=== PATIENT | female | born 1980 | race Caucasian/White ===

== ENCOUNTER 2019-03-24 07:09 | Inpatient (IN) | payer OTHER ==
[2019-03-21 13:15] VITALS: BMI 24.5
[2019-03-24] MEDS ORDERED: MIDAZOLAM HCL 2 MG/2 ML SINGLE DOSE VIAL ONE ×3 (07:51→08:53)
[2019-03-24] MEDS ORDERED: DEXAMETHASONE SOD PHOSPHATE 4 MG/1 ML VIAL ONE ×4 (07:53→08:53)
[2019-03-24] MEDS ORDERED: ROPIVACAINE HCL 0.5% 30ML VIAL ONE (07:53)
--- NOTE | 2019-03-24 08:07 | HP ---
History & Physical Update - History History: No Change - Physical Physical: No Change - Assessment Assessment: No Change - Plan Plan: No Change (Initial H&P is located in pateint's paper chart. It is complete /accurate/UTD. No new medications or complaints. Here today for elective abdominal myomectomy.)
[2019-03-24] MEDS ORDERED: ceFAZolin SODIUM 1 GM VIAL ONE ×2 (08:10→08:11)
[2019-03-24] MEDS ORDERED: PHENAZOPYRIDINE HCL 100 MG TABLET (FP) PO ONE (08:10)
[2019-03-24] MEDS ORDERED: PROPOFOL 20 ML ONE ×3 (08:11→08:53)
[2019-03-24] MEDS ORDERED: SODIUM CHLORIDE 0.9% P/F 10 ML VIAL IJ ONE ×2 (08:11→08:41)
[2019-03-24] MEDS ORDERED: fentaNYL CITRATE 250 MCG/5 ML VIAL ONE (08:11)
[2019-03-24] MEDS ORDERED: EPHEDRINE SULFATE/0.9% NACL/PF 50 MG/10 ML SYRINGE NR ONE (08:15)
[2019-03-24] MEDS ORDERED: ROCURONIUM BROMIDE 50 MG/5 ML SYRINGE ONE ×2 (08:17→08:53)
[2019-03-24] MEDS ORDERED: ONDANSETRON 4 MG/2 ML VIAL IVPUSH PRN ×2 (08:25→11:36)
[2019-03-24] MEDS ORDERED: oxyCODONE HCL 5 MG TABLET PO PRN ×3 (08:25→11:36)
[2019-03-24] MEDS ORDERED: SCOPOLAMINE HYDROBROMIDE 1 PATCH PATCH.TD72 ONE (09:07)
[2019-03-24] MEDS ORDERED: ceFAZolin 2 GRAM PREMIX BAG IVPB ONE (09:28)
[2019-03-24] MEDS ORDERED: ACETAMINOPHEN INJECTION 100 ML IVPB ONE (09:50)
[2019-03-24] MEDS ORDERED: KETOROLAC TROMETHAMINE 30 MG/1 ML VIAL ONE (11:11)
--- NOTE | 2019-03-24 11:35 | OP ---
Operative Note - Note: Operative Date: 03/24/19 Pre-Operative Diagnosis: Multiple uterine fibroids Operation: open abdominal myomectomy x2 Post-Operative Diagnosis: Same as Pre-op Surgeon: Rudy Kuhn Senior Medical Transcriptionist: Clemente Oliva Anesthesiologist/WATER SOFTENER SERVICER AND INSTALLER: Kaela Bingham Anesthesia: General Specimens Removed: fibroids x 2 Estimated Blood Loss (mls): 50 Drains, Volume Out (mls): 400 (broderick/orange from pyridium) Fluid Volume Replaced (mls): 1,500 Operative Report Dictated: Yes
[2019-03-24] MEDS ORDERED: BISACODYL 5 MG TABLET.DR (FP) PO PRN (11:36)
[2019-03-24] MEDS ORDERED: IBUPROFEN 800 MG/8 ML IJ IVPB PRN (11:36)
[2019-03-24] MEDS ORDERED: DOCUSATE SODIUM 100 MG CAPSULE (FP) PO PRN (11:36)
--- NOTE | 2019-03-24 11:36 | SURG ---
Surgery Medical Staff Physician Note Medical Staff Physician: Clemente Oliva PA-C Date of Service: 03/24/19 Diagnosis: Leiomyoma I was present for the entirety of the operative procedure. For further detail, please refer to operative report. Visit type - Case Type Case Type: Scheduled - New patient This patient is new to me today: Yes Date on this admission: 03/24/19
--- NOTE | 2019-03-24 13:21 | OP ---
DATE OF OPERATION: 03/24/2019 PROCEDURE: Abdominal myomectomy. HISTORY: Patient is 38-year-old para 1 complaining of excessive menorrhagia and vaginal bleeding, history of pelvic pain. On the exam, uterus about 14 weeks. Irregular cervix with multiple fibroids. Sonogram confirmed multiple fibroids about 7 cm each. Discussed with the patient options for management. Patient opted for surgical management. Procedure explained. Risks and benefits explained. Risks of possible bleeding, infection, perforation, injury of pelvic and abdominal organs including, but not limited to, the ureter, bowel, bladder explained to the patient. Patient opted for surgical management. Also risk of recurrence of fibroid. Risk of unable to conceive in the future explained to the patient. Patient understood the risks. Patient understood also that in the following conceived patient needs section as the mode of delivery. SURGEON: Rudy Kuhn MD HEALTH POLICY MANAGER: JOAN Lange ESTIMATED BLOOD LOSS: 50 mL. INTRAVENOUS FLUID GIVEN: Lactated Ringer's 1800 mL. URINE OUTPUT: 250 mL clear. COMPLICATIONS: None. ANESTHESIA: General anesthesia with abdominal TAP. Patient received 2 g of Ancef preoperatively. PREOPERATIVE DIAGNOSIS: Pelvic pain, menorrhagia, and fibroids. POSTOPERATIVE DIAGNOSIS AND FINDINGS: Multiple fibroids about 7-8 cm each dissected. Sent for pathological evaluation. The ovary and the tubes bilateral grossly look normal. Uterus size about 16-17 weeks' size prior to removal of the fibroids. DESCRIPTION OF PROCEDURE: Patient was taken to operating room under general anesthesia. After receiving 2 g of Ancef preoperatively with TAP anesthesia, was prepped, draped in dorsal position. Skin Pfannenstiel incision was done by scalpel, carried to underlying layer of fascia. Patient following that with scalpel to underlying layer of fascia, the fascia was incised in the midline, extended bilaterally using Wood scissors. The muscle and the peritoneum were entered bluntly. Evaluation of the pelvic organ showed multiple fibroids about 7-8 cm each, 1 anteriorly lateral to the right side, 1 anteriorly lateral to the left side about 7-8 cm each. Attention was given to the anterior fibroid on the right side. Was incised the serosa on top of the fibroid. Fibroid was dissected and sent for pathological evaluation using a Bovie and Wood scissors. Following that, the bed of the fibroid after removed was closed and approximated with interrupted 0 Vicryl in multiple layers. The serosa was closed using a baseball suture style using 0 Vicryl. Following that, attention was given to anterior lateral to left side fibroid was identified. The serosa was incised, and the fibroid was remove using a Bovie and Wood scissors and sent for pathological examination. The bed of the fibroid after removed was closed using 0 Vicryl in multiple layers, and the serosa was closed using baseball-style suture using 0 Vicryl. Good hemostasis was obtained. We used Interceed and Surgicel to cover the area where the incision was performed and the myomectomy was performed preventing adhesions in the future. Irrigation and suction was performed. Shows good hemostasis. The fascia was closed in continuous, locked fashion using 0 Vicryl, subcutaneous was closed using 3-0 Vicryl interrupted, and subcuticular was closed using 3-0 Vicryl. We used Dermabond to close the skin incision. Good hemostasis was obtained. Patient transferred to recovery room in stable condition. RUDY KUHN MD [id number]
[2019-03-24] MEDS: LACTATED RINGERS SOLUTION 1,000 ML IV SCH (17:12)
--- NOTE | 2019-03-24 19:16 | PN ---
Progress Note (short form) - Note Progress Note: S/P Abdominal Myomectomy a febrile , no vaginal bleeding , ambulate incision intact , no discharge , no bleeding . abdomin sofr ,non tende, no distension , will cont. ambulate . Po pain management prn . advance diet .
[2019-03-24 19:49] LABS: HEMATOCRIT 34.8 % (32.4-45.2); HEMOGLOBIN 11.4 GM/dL (10.7-15.3); MCH 28.4 pg (25.7-33.7); MCHC 32.7 g/dl (32.0-36.0); PLATELET COUNT 183 K/MM3 (134-434); RDW 15.5 % (11.6-15.6); WHITE BLOOD COUNT 10.3 K/mm3 (4.0-10.0)
[2019-03-24 20:15] LABS: BLOOD UREA NITROGEN 9.1 mg/dL (7-18); CALCIUM 8.1 mg/dL (8.5-10.1); CREATININE 0.7 mg/dL (0.55-1.3); POTASSIUM 4.1 mmol/L (3.5-5.1)
[2019-03-25] MEDS: oxyCODONE HCL 5 MG TABLET PO PRN ×2 (06:23→15:47)
[2019-03-25] MEDS: LACTATED RINGERS SOLUTION 1,000 ML IV SCH ×2 (06:23→15:10)
--- NOTE | 2019-03-25 08:17 | PN ---
Progress Note (short form) - Note Progress Note: Surgery POD #1 abdominal myomectomy patient seen and examined at bedside with complaints of gas. She has been OOB and is tolerating her clear diet. Her pain is controlled and she denies any CP, SOB, N/V, fever or chills. Vital Signs Temp 98.6 F 03/25/19 06:25 Pulse 64 03/25/19 06:25 Resp 20 03/25/19 06:25 BP 115/69 03/25/19 06:25 Pulse Ox 98 03/24/19 21:00 Intake & Output 03/24/19 03/24/19 03/25/19 11:59 23:59 11:59 Intake Total 2000 1100 1100 Output Total 150 2900 400 Balance 1850 -1800 700 Intake: IV 2000 1100 600 Lactated Ringers Solution 300 600 1,000 ml @ 75 mls/hr IV ASDIR KEERTHI Rx#:[id number] Oral 500 Output: Urine 100 2900 400 Broderick 400 Void 1100 400 Estimated Blood Loss 50 Other: Voiding Method Toilet Bowel Movement No No CBC, BMP 03/25/19 07:50 PE: A&Ox3, NAD Unlabored resp on RA ABD: soft, ND with mild ttp throughout lower quadrants. dressing c/d/i with surrounding tissue intact and no evidence of tracking erythema or edema. No vaginal bleeding. B/L LE compartments soft, supple and non-tender with +2 Dp pulses Problem List - Problems (1) Status post myomectomy Assessment/Plan: POD #1 doing well. -Advance diet -D/c broderick- TOV -OOB as tolerated -Simenthicone for gas -plan for possible d/c later today pending. Code(s): Z98.890 - OTHER SPECIFIED POSTPROCEDURAL STATES
[2019-03-25 08:27] LABS: HEMATOCRIT 32.4 % (32.4-45.2); HEMOGLOBIN 10.8 GM/dL (10.7-15.3); MCH 28.7 pg (25.7-33.7); MCHC 33.2 g/dl (32.0-36.0); MEAN CELL VOLUME 86.3 fl (80-96); MEAN PLT VOLUME 9.6 fl (7.5-11.1); PLATELET COUNT 184 K/MM3 (134-434); RBC 3.76 M/mm3 (3.60-5.2); RDW 15.4 % (11.6-15.6); WHITE BLOOD COUNT 10.9 K/mm3 (4.0-10.0)
[2019-03-25 08:55] LABS: BLOOD UREA NITROGEN 6.3 mg/dL (7-18); CREATININE 0.7 mg/dL (0.55-1.3); POTASSIUM 3.7 mmol/L (3.5-5.1)
[2019-03-25] MEDS: ACETAMINOPHEN 325 MG TABLET (FP) PO PRN (10:51)
[2019-03-25] MEDS: ASCORBIC ACID 500 MG TABLET (FP) PO SCH (10:51)
[2019-03-25] MEDS: ENOXAPARIN NA (PORCINE) 40 MG/0.4 ML DISP.SYRIN SQ SCH (10:52)
[2019-03-25] MEDS: MULTIVITAMINS (DAILY MVI) TABLET (FP) PO SCH (10:52)
[2019-03-25] MEDS: CHOLECALCIFEROL (VIT D3) 400 UNIT (10 MCG) TABLET PO SCH (10:52)
[2019-03-25] MEDS: OMEGA-3 ACID ETHYL ESTERS (FATTY-ACIDS) 1 GM CAPSULE (FP) PO SCH (10:52)
[2019-03-25] MEDS: SIMETHICONE 80 MG TAB.CHEW (FP) PO PRN ×2 (12:23→16:59)
--- NOTE | 2019-03-25 15:38 | DS ---
"Physical Exam: SUBJECTIVE: Patient seen and examined at bedside POD#1 abdominal myomectomy. Patient states she feels well. She is voiding, tolerating her diet and her pain is controlled. She denies any CP, SOB, N/V, fever or chills. OBJECTIVE: Vital Signs Period Temp Pulse Resp BP Sys/Silveira Pulse Ox Last 24 Hr 98.1 F-98.7 F 60-72 16-20 100-128/53-70 98-98 PHYSICAL EXAM GENERAL: The patient is awake, alert, and fully oriented, in no acute distress. HEAD: Normal with no signs of trauma. EYES: PERRL, sclera anicteric, conjunctiva clear. NECK: Trachea midline, LUNGS: Unlabored resp on RA. no accessory muscle use. ABDOMEN: soft, ND with mild ttp throughout lower quadrants. dressing c/d/i with surrounding tissue intact and no evidence of tracking erythema or edema. No vaginal bleeding. normoactive bowel sounds B/L LE compartments soft, supple and non-tender with +2 Dp pulses LABS Laboratory Results - last 24 hr 03/24/19 03/24/19 03/25/19 19:00 19:00 07:50 WBC 10.3 H 10.9 H RBC 4.00 3.76 Hgb 11.4 10.8 Hct 34.8 32.4 MCV 87.0 86.3 MCH 28.4 28.7 MCHC 32.7 33.2 RDW 15.5 15.4 Plt Count 183 184 MPV 10.0 9.6 Sodium 135 L Potassium 4.1 Chloride 104 Carbon Dioxide 21 Anion Gap 11 BUN 9.1 Creatinine 0.7 Est GFR (CKD-EPI)AfAm 125.61 Est GFR (CKD-EPI)NonAf 108.38 Random Glucose 182 H Calcium 8.1 L 03/25/19 07:50 WBC RBC Hgb Hct MCV MCH MCHC RDW Plt Count MPV Sodium 138 Potassium 3.7 Chloride 106 Carbon Dioxide 22 Anion Gap 10 BUN 6.3 L Creatinine 0.7 Est GFR (CKD-EPI)AfAm 125.61 Est GFR (CKD-EPI)NonAf 108.38 Random Glucose 89 Calcium 8.0 L HOSPITAL COURSE: Date of Admission:03/24/19 The patient was admitted to the Med-Surg Unit after an elective repair of her leiomyomas/pelvic pain. Now, s/p open abdominal myomectomy. Pain management was achieved with a narcotic and non-narcotic oral and IV regimen. POD #1, the patient passed flatus and diet was advanced. Hemoglobin and hematocrit were monitored as well as vitals and remained stable throughout admission. Elisabet-operative IV ABX were administered. DVT prophylaxis was achieved with Lovenox 40mg qd, SCDs and early ambulation. The patient ambulated the halls without issue. Narcotic scripts were checked with [facility] SQL DEVELOPER prior to escribe. The discharge instructions and an oral pain management plan were reviewed with the patient. All questions answered. Above plan discussed with . Date of Discharge: 03/25/19 Minutes to complete discharge: 25 Discharge Summary Problems reviewed: Yes Reason For Visit: FIBROID/PELVIC PAIN/MENORRHAGIA Current Active Problems Status post myomectomy (Acute) - Instructions Diet, Activity, Other Instructions: Dr. Kuhn's Detailer Furniture discharge instructions Physical activity Resume your normal everyday activity as tolerated no heavy lifting or exercise until seen by your surgeon. You may walk unlimited jhonatan of and climb stairs. You may resume driving the car when you feel safe and comfortable behind the wheel. No sexual activity as instructed by Dr. Ordaz. Wound care If you have a bandage, leave it on, and keep dry for 48-72 hours. After that time discard the outer bandage. If they are tapes on the skin under the out of bandage leave them in place. They will peel off in the next 7 to 10 days. Do Not Peel them off. You may shower the day after surgery. If there are tapes present on the skin, you may shower over them. Diet There are no dietary restrictions. Eat healthy, high-fiber foods. Drink 6 to 8 glasses of liquid each day. This will assist in keeping your bowels are regular. Pain management You may take Ibuprofen (for example, Motrin, Advil etc.) from my pain prescription medication is ordered should be taken as prescribed for moderate to severe pain. Call Dr. Kuhn for any of the following: Severe pain not relieved by medication Fever of 101 or higher Excessive bleeding or drainage on dressing Inability to urinate Call the office for an appointment in seven days. [facility] SQL DEVELOPER: This report was requested by: Clemente Oliva | Reference #: [id number] - Home Medications Comprehensive Discharge Medication List: Ambulatory Orders Ascorbic Acid [Vitamin C] 1,000 mg PO DAILY 03/21/19 Cholecalciferol (Vitamin D3) [Vitamin D -] 400 unit PO DAILY 03/21/19 Multivitamin [One-Daily Multi-Vitamin] 1 each PO DAILY 03/21/19 Walton-3 Fatty Acids [Walton-3] 1,000 mg PO DAILY 03/21/19 Oxycodone HCl/Acetaminophen [Percocet 5-325 mg Tablet] 1 - 2 tab PO Q6H PRN #30 tab MDD 8 03/25/19 Problem List - Problems (1) Status post myomectomy Assessment/Plan: POD #1 doing well with some gas pain. -regular diet -Encourage OOB ambulating as tolerated -will help with gas -plan for possible d/c home today. Code(s): Z98.890 - OTHER SPECIFIED POSTPROCEDURAL STATES This patient is new to me today: Yes Date on this admission: 03/25/19 Emergency Visit: No Critical Care patient: No - Discharge Referral [facility]erred to [facility] Med P.C.: No"
--- NOTE | 2019-03-25 16:08 | PATH ---
Surgical Pathology Report Patient Name: JOY STEPHENSON Med. Rec. #: [id number] /Age/Gender: 1980 (Age: 38) / F Account: [id number] Location: [address] [place] [address]/[facility] Taken: 03/24/2019 Received: 03/24/2019 Reported: 03/25/2019 Physicians: ARNAUD RIBEIRO Specimen(s) Received UTERINE FIBROIDS Clinical History Fibroids, pelvic pain, menorrhagia Final Diagnosis UTERINE FIBROID, ABDOMINAL MYOMECTOMY: 236 G, LEIOMYOMA(TA). Electronically Signed Iasura Spangler Gross Description Received in formalin labeled "uterine fibroid," is a 236 g aggregate of 3, yung, rubbery nodules consistent with fibroids. The fibroids range from 1.0-7.5 cm in greatest dimension. Sectioning reveals yung, firm to rubbery parenchyma with whorled architecture. No areas of hemorrhage or necrosis are identified. Cleaner Touch Up Worker sections are submitted in 8 cassettes as follows: 1-smallest bisected fibroid; 2-4-medium fibroid; 5-8-largest fibroid. DL/03/24/2019 saudi/03/24/2019
--- NOTE | 2019-03-25 17:17 | PN ---
Progress Note (short form) - Note Progress Note: POD#1 abdominal myomectomy afebril, no vaginal bleeding , ambulate , Gas pain occasionally . no B/M no vomiting . incision dressing intact , no bleeding . no vaginal bleeding . cont. ambulate . po pain managment prn . F/U pathology report
[2019-03-25] MEDS ORDERED: BISACODYL 10 MG SUPP.RECT RC PRN (23:50)
--- NOTE | 2019-03-26 08:10 | PN ---
Progress Note (short form) - Note Progress Note: Surgery POD #2 abdominal myomectomy patient seen and examined at bedside. She received a suppository yesterday and moved her bowels. Her gas pain has improved. She has been OOB and is tolerating her clear diet. Her pain is controlled and she denies any CP, SOB, N/V, fever or chills. Vital Signs Temp 98.7 F 03/25/19 22:00 Pulse 68 03/25/19 22:00 Resp 20 03/25/19 22:00 BP 108/57 L 03/25/19 22:00 Pulse Ox 98 03/25/19 21:00 Intake & Output 03/25/19 03/25/19 03/26/19 11:59 23:59 11:59 Intake Total 1450 600 Output Total 400 Balance 1050 600 Intake: IV 600 600 Lactated Ringers Solution 600 600 1,000 ml @ 75 mls/hr IV ASDIR KEERTHI Rx#:[id number] Oral 850 Output: Urine 400 Void 400 Other: Voiding Method Toilet Toilet # Unmeasured Voids Void 2 Bowel Movement No No Yes CBC, BMP 03/25/19 07:50 03/25/19 07:50 A&Ox3, NAD Unlabored resp on RA ABD: soft, ND with mild ttp throughout lower quadrants appropriate to status. dressing c/d/i with surrounding tissue intact and no evidence of tracking erythema or edema. No vaginal bleeding. B/L LE compartments soft, supple and non-tender with +2 Dp pulses Problem List - Problems (1) Status post myomectomy Assessment/Plan: POD #2 doing well. -regular diet -Encourage OOB -d/c home this morning Code(s): Z98.890 - OTHER SPECIFIED POSTPROCEDURAL STATES
[2019-03-26] MEDS: ACETAMINOPHEN 325 MG TABLET (FP) PO PRN ×2 (08:57→13:44)
[2019-03-26] MEDS: MULTIVITAMINS (DAILY MVI) TABLET (FP) PO SCH (09:00)
[2019-03-26] MEDS: OMEGA-3 ACID ETHYL ESTERS (FATTY-ACIDS) 1 GM CAPSULE (FP) PO SCH (09:00)
[2019-03-26] MEDS: CHOLECALCIFEROL (VIT D3) 400 UNIT (10 MCG) TABLET PO SCH (09:00)
[2019-03-26] MEDS: LACTATED RINGERS SOLUTION 1,000 ML IV SCH (09:01)
[2019-03-26] MEDS: ASCORBIC ACID 500 MG TABLET (FP) PO SCH (09:02)
[2019-03-26] MEDS ORDERED: FLU VACCINE QUAD 60 MCG/0.5 ML (MDV 19-20) IM ONE (10:00)
[2019-03-26] MEDS: ENOXAPARIN NA (PORCINE) 40 MG/0.4 ML DISP.SYRIN SQ SCH (11:26)
--- NOTE | 2019-03-26 13:42 | PN ---
Progress Note (short form) - Note Progress Note: S/P abdominal Myomectomy #2 afebrile, no vaginal bleedig , ambulate tolerated diet well . + B/M . incision intact , no discharge , no bleeding , abdomin soft , non tender , no distension . no vaginal bleeding . wound care instructions given . cont, PO pain managment prn . f/u in 2 weeks in [facility]
[2019-03-26 15:06] VITALS: BP 122/65; PULSE 69; TEMP 98
== END 2019-03-26 17:56 | disposition home or self-care (01) | DRG 519 ==
LOC: JSAMEDAYSX 07:09 → J6S 16:52
PROVIDERS: ADMIT Family Medicine; ATTEND Family Medicine
PROC: 0UB90ZZ Excision of Uterus, Open Approach (ICD-10-PCS; principal; 2019-03-24 09:00)
DX: D25.9 Leiomyoma of uterus, unspecified (principal); N92.0 Excessive and frequent menstruation with regular cycle; R10.2 Pelvic and perineal pain
CPT/HCPCS: 36415; 80048; 84703; 85027; 86850; 86900; 86901; 88305-TC; 94010; 94760; G0008; J0131; Q2036